=== PATIENT | male | born 1945 | race Caucasian/White ===

== ENCOUNTER 2018-08-02 04:50 | Emergency (ER) | payer MEDICARE, OTHER, SELFPAY ==
[2018-08-02 04:51] VITALS: BP 139/65; PULSE 66; RESP 20; TEMP 36.6; O2SAT 98; BMI 30.3
[2018-08-02] MEDS: predniSONE 20 MG Tablet 40 MG PO (05:07)
--- NOTE | 2018-08-02 05:09 | ED.DCSUM_ITS ---
- ER Visit Summary Date of Service: 08/02/18 Chief Complaint: Allergic reaction History of Present Illness: The patient is a 73 M presents for concerns of allergic reaction to antibiotic. Started on Augmentin Thursday by [facility] for mild diverticulitis per patient. States it was confirmed by CT scan. Being treated with medication 3 times a day status post 7 doses. He states yesterday morning noted a mild rash however has became more diffuse face and torso. States pruritic. No lip or tongue swelling. States had 3-4 days abdominal pain prior to being diagnosed. Pain has improved. No nausea or vomiting. No diarrhea. He has taken amoxicillin in the past. Patient drove himself here. Denies history of diabetes. Physical Examination: General: Alert and oriented ?3, no acute distress HEENT: Normocephalic, atraumatic. Moist mucosa membranes. No lip or tongue swe lling. Airway patent. Neck: supple, nontender. Cardiovascular: Regular rate and rhythm, no murmurs Respiratory: Normal breath sounds, symmetric, no distress Abdomen: Soft, nontender, nondistended Extremities: Nontender, no edema, pulses intact ?4 Neuro: no focal neurological deficits. Skin: Diffuse macular papular rash torso front and back. There is erythema and flushing of the face. Test Results: [] Emergency Department Course and Treatment: History concerns for drug reaction causing a rash. There is no airway compromise. Vital signs are stable. Patient drove himself here. Be started on prednisone, Benadryl 1 tab dispense to take at home. We will stop Augmentin. Patient does have prescription coverage. Discussed due to being diagnosed with diverticulitis by CT scan per history, should treat for at least 10-day recommendations even with symptoms improved. He is 3 days of treatment in. Discussed his options, we will do Avelox daily for 7 days. He will continue with additional 4 days of steroids. Benadryl as needed. Also discussed patient will need to see his new physician referral to GI for follow-up colonoscopy. Treatment Plan: [] Disposition: Discharge Impression: 1. Allergic drug reaction 2. Current treatment for diverticulitis This note was generated with [employer] software. It may contain incorrect words, spelling, and punctuation that were not noted in review of the chart prior to signing ED Disposition - Plan for ED Patient: Disposition: Home or Assisted Living Chief Complaint: Allergic Reaction Diagnosis: Allergic drug reaction, Current diverticulitis treatment Instructions: ED Drug React Allergic Prescriptions: Moxifloxacin HCl [Avelox] 400 mg PO DAILY #7 tablet Prednisone [Deltasone] 40 mg PO DAILY #8 tablet Additional Instructions: Stop Augmentin. Start Avelox for full treatment of your diverticulitis. Prednisone for additional 4 days start tomorrow. Benadryl 25 mg every 6 hours as needed for itching. Follow-up with your new physician for reevaluation as scheduled and referral to GI.
[2018-08-02 05:31] VITALS: BP 111/69; PULSE 64; RESP 16; O2SAT 95
[2018-08-02] MEDS: DiphenhydrAMINE 25 MG Capsule PO (05:31)
== END 2018-08-02 05:32 | disposition home or self-care (01) ==
LOC: ED 05:25
PROVIDERS: Emergency Provider Emergency Medicine; Family Provider Family Medicine; PCP Family Medicine
DX: L27.0 Generalized skin eruption due to drugs and medicaments taken internally (principal); T36.0X5A Adverse effect of penicillins, initial encounter; Y92.9 Unspecified place or not applicable; K57.92 Diverticulitis of intestine, part unspecified, without perforation or abscess without bleeding; H40.9 Unspecified glaucoma
CPT/HCPCS: 99283

== ENCOUNTER 2020-03-21 16:33 | Emergency (ER) | payer MEDICARE, OTHER, SELFPAY ==
[2020-03-21 16:34] VITALS: BP 127/75; PULSE 63; RESP 19; TEMP 36.5; O2SAT 100; BMI 30.4
--- NOTE | 2020-03-21 16:55 | ED.DCSUM_ITS ---
History of Present Illness Chief Complaint: Laceration Informant: Patient Occurred: Hours - 1 Mechanism/Context: Incised - on accident w/ kitchen knife Context: Sudden Onset Timing: Continuous Quality of Pain: - - sore Location: left index finger Current Severity: Mild Maximum Severity: Mild Worsened by: palpation Relieved by: leaving alone Associated Symptoms: Negative for: Parasthesia, Weakness, Loss of Funtion Narrative: Patient was trying to open a package of ham with a kitchen knife and accidentally punctured through it and lacerated his left index finger as a result. Tetanus Immunization: 5-10 years Past Medical History - Allergies and Home Meds Allergies/Adverse Reactions: Allergies amoxicillin [From Augmentin] Allergy (Verified 03/21/20 16:33) Hives clavulanic acid [From Augmentin] Allergy (Verified 03/21/20 16:33) Hives bacitracin [From Neosporin ([id number])] Adverse Reaction (Verified 03/21/20 16:33) Rash neomycin [From Neosporin ([id number])] Adverse Reaction (Verified 03/21/20 16:33) Rash polymyxin B [From Neosporin ([id number])] Adverse Reaction (Verified 03/21/20 16:33) Rash Primary Care Physician: Cayden Hedrick III, MD [Primary Care Provider] - 10-14 Days suture removal Past Medical History: None Smoking Status: Never smoker Review of Systems Musculoskeletal: Reports: Extremity Pain Skin: Reports: Wounds Neurological: Denies: Weakness, Parasthesia, Numbness Physical Exam Vital Signs/Narrative: Vital Signs Temp Pulse Resp BP Pulse Ox 03/21/20 16:34 97.7 F L 63 19 H 127/75 H 100 General: Well nourished, Well developed, - - well-appearing, nad Head: Normocephalic, Atraumatic Extremeties: Mild tenderness at the laceration of the left index finger, which is dorsal only. Full extension and flexion at the DIPJ. Skin: Normal color, No rash, Trauma - 1.5 cm full-thickness laceration to the dorsum of the left index finger at the level of the DIPJ. No tendon or bone visible within the wound. Minimal bleeding. No signs of infection. Clean appearing without gross contamination. No foreign body. Neurological: Alert, Oriented x3, Cranial nerves II-XII grossly intact, Normal Strength, Normal Sensation, Normal Gait Psychological: Normal affect Diagnostic/Tx/Re-eval - Medical Decision Making No bony tenderness, or patient foreign body, no indication for x-ray. Laceration was repaired with 4 nylon sutures. Removal in 10 to 14 days, patient is comfortable with that plan. His tetanus is up-to-date. Procedures - Lacerations left index finger Length: 1.5 cm Depth: Sub Q Shape: Linear Prep: Sterile Conditions, Chlorhexadine Laceration repair: Irrigated, Lidocaine, Local - 1cc Irrigated (ml): 50 Number of Sutures/[place]: 4 Suture Information: Ethilon, Simple, 5-0 ED Disposition - Plan for ED Patient: Disposition: Home or Assisted Living Diagnosis: Laceration of left index finger w/o foreign body w/o damage to nail Instructions: ED Laceration Hand Referrals: Cayden Hedrick III, MD [Primary Care Provider] - 10-14 Days suture removal (Or urgent care or ER acceptable)
[2020-03-21] MEDS: Lidocaine/Epi/Tetracaine 50 ML 1 APPLIC TOPICAL (17:03)
== END 2020-03-21 19:30 | disposition home or self-care (01) ==
LOC: ED 17:24
PROVIDERS: Emergency Provider Emergency Medicine; PCP Family Medicine
DX: S61.211A Laceration without foreign body of left index finger without damage to nail, initial encounter (principal); W26.0XXA Contact with knife, initial encounter; Y93.G3 Activity, cooking and baking; Y92.9 Unspecified place or not applicable; Y99.9 Unspecified external cause status
CPT/HCPCS: 12001; 99283

== ENCOUNTER → 2020-12-20 10:51 | Outpatient (CLI) | payer MEDICARE, OTHER, SELFPAY ==
--- NOTE | 2020-12-20 11:00 | MRI_ITS ---
STUDY: MRI ORBITS WITH AND WITHOUT CONTRAST REASON FOR EXAM: Male, 75 years old. OPTIC ATROPHY OS -- ORBITS TECHNIQUE: Standardized fat and water weighted pulse sequences were obtained in all 3 orthogonal planes, pre-and post contrast administration. IV DOTAREM 19CC was administered for the contrast portion of the examination. COMPARISON: None. FINDINGS: Normal bilateral globes. Atrophic bilateral optic nerves. Normal bilateral intraconal and extraconal spaces. Normal bilateral extraocular muscles. Atrophic optic chiasm and post-chiasmatic tracts. Normal sella turcica, pituitary gland, infundibular stalk, and hypothalamus. Normal bilateral cavernous sinuses. Normal tectal plate and pineal gland. Normal flow voids within the major intracranial circulation suggesting patency by spin echo criteria. Normal size of the ventricles and extra-axial spaces for the patient''s age. Normal white matter tracts of the supratentorial brain. Normal bilateral basal ganglia. Normal thalami. There is no extra-axial fluid accumulation. Normal midbrain, arlet and medulla. Normal cerebellum. Normal basal cisterns. MRI/Orbit Face Neck W/WO Contrast IMPRESSION: There is thickening of the optic chiasm and optic nerves consistent with optic atrophy. There is no abnormality in the optic tracts or in the cerebral white matter right occipital lobes are unremarkable. Electronically Signed: Charleen Augustin MD at 13:42 EDT Tel , Service support ,
[2020-12-20 11:21] LABS: CREATININE FINGERSTICK 1.4 mg/dL (0.70-1.30)
== END ==
PROVIDERS: PCP Family Medicine; Referring Provider Ophthalmology; Visit Provider Ophthalmology
DX: H47.212 Primary optic atrophy, left eye (principal)
CPT/HCPCS: 70543; A9575

== ENCOUNTER → 2022-08-05 | Outpatient (CLI) | payer MEDICARE, OTHER, SELFPAY ==
--- NOTE | 2022-08-05 13:04 | EKG12_ITS ---
Test Reason : PREOP Blood Pressure : / mmHG Vent. Rate : 071 BPM Atrial Rate : 071 BPM P-R Int : 188 ms QRS Dur : 078 ms QT Int : 370 ms P-R-T Axes : 021 013 059 degrees QTc Int : 402 ms Normal sinus rhythm Normal ECG Confirmed by NORMA RICHEY, JOEL ([id number]), science editor PASQUALE BARRAGAN ([id number]) on 08/06/2022 9:07:28 AM Referred By: Houston Dennis Confirmed By:JOEL GREEN MD
--- NOTE | 2022-08-05 13:05 | CT_ITS ---
EXAM: CT RIGHT LOWER EXTREMITY WITHOUT INTRAVENOUS CONTRAST CLINICAL INDICATION: PRE OP TECHNIQUE: Helically acquired images were obtained of the right lower extremity without intravenous contrast. 2-D reformats were performed by the technologist. CTDIvol = ( 18.76 ) mGy, DLP = ( 2803.37 ) mGycm This CT exam was performed using one or more of the following dose reduction techniques: automated exposure control, adjustment of the mA and/or kV according to patient size, and/or use of iterative reconstruction technique. This report was created using [employer] report SpeedDate technology. COMPARISON: None. FINDINGS: Moderate osteoarthrosis involving the hips and knees with [id number] articulation at central aspect of the medial femorotibial compartment and with mild lateral subluxation of the tibia relative to the femur. No definite acute or healing fracture or malalignment. No unusual lytic or splenic lesions of bone. Distal colonic diverticulosis without diverticulitis. Moderate suprapatellar joint fluid is present. Peripheral vascular disease. Extensor mechanism enthesopathy. Calcaneal enthesopathy. CT/Extremity Lower without Contra IMPRESSION: Preoperative planning study performed from the hip to the ankle. Incidental findings as above. Electronically Signed: Dallas Gore MD at 22:45 EST ,
[2022-08-05 14:38] LABS: Absolute Lymphocyte Count 2.16 X10^3/uL (0.83-4.51); Absolute Neutrophil Count 3.5 X10^3/uL (2.0-7.7); Basophil# 0.04 X10^3/uL; Basophil% 0.6 % (0-1); Eosinophil# 0.17 X10^3/uL; Eosinophils% 2.5 % (0-5); Hematocrit 43.9 % (40-54); Hemoglobin 14.7 g/dL (13.0-16.5); Lymphocyte # 2.16 X10^3/ul (0.83-4.51); Lymphocyte % 31.4 % (19-41); Mean Corp Hgb Conc 33.5 g/dL (32-36); Mean Corpuscular Volume 98.4 fL (80-94); Mean Platelet Vol. 9.9 fl (6.2-12.0); Monocyte# 0.95 X10^3/uL; Monocyte% 13.8 % (0-10); NRBC Flagged by Analyzer 0 % (0-5); Neutrophil # 3.54 X10^3/uL (2.7-7.7); Neutrophil % 51.4 % (47-70); Platelet Count 344 K/mm3 (150-450); RBC Distribution Width CV 14.4 % (11.6-14.6); RBC Distribution Width SD 52.5 fl (35.1-43.9); Red Blood Count 4.46 M/mm3 (4.6-6.2); White Blood Count 6.9 K/mm3 (4.4-11.0)
[2022-08-05 14:52] LABS: Albumin, Serum 3.4 g/dL (3.2-5.0); Anion Gap 5 (5-15); BUN 13 mg/dL (7-18); Chloride 105 mmol/L (98-107); Creatinine, Serum 0.87 mg/dL (0.70-1.30); EST Glomerular Filtration Rate 91 mL/min (>60); Est Glom Filt Rate - Afr Amer 110 mL/min (>60); Glucose 87 mg/dL (74-106); Potassium 4.1 mmol/L (3.5-5.1); Sodium Level 139 mmol/L (136-145)
[2022-08-05 14:59] LABS: Hemoglobin A1c 5.6 % (3.8-5.6)
== END | disposition home or self-care (01) ==
PROVIDERS: PCP Nurse Practitioner Primary Care; Referring Provider Physician Assistant Surgical; Visit Provider Physician Assistant Surgical
DX: Z01.818 Encounter for other preprocedural examination (principal); Z01.810 Encounter for preprocedural cardiovascular examination; M17.11 Unilateral primary osteoarthritis, right knee
CPT/HCPCS: 36415; 73700; 80048; 82040; 83036; 85025; 93005

== ENCOUNTER 2022-08-29 14:49 | Inpatient (IN) | payer MEDICARE, OTHER, SELFPAY ==
[2022-08-29 14:51] VITALS: BP 133/113; PULSE 78; RESP 18; TEMP 35.9; O2SAT 95; BMI 29.5
--- NOTE | 2022-08-29 17:19 | CT_ITS ---
EXAM: CT ABDOMEN AND PELVIS WITH INTRAVENOUS CONTRAST CLINICAL INDICATION: abdominal pain TECHNIQUE: Helically acquired images were obtained of the abdomen and pelvis with intravenous contrast. This CT exam was performed using one or more of the following dose reduction techniques: automated exposure control, adjustment of the mA and/or kV according to patient size, and/or use of iterative reconstruction technique. This report was created using [employer] report generation technology. CONTRAST: IV 100mL Isovue-300 COMPARISON: 07/04/2016. FINDINGS: LOWER THORAX: Unremarkable. Lung bases are clear. No cardiomegaly. No significant pericardial effusion. ABDOMEN: LIVER: Small calcifications in the liver consistent with old granulomatous disease. GALLBLADDER AND BILE DUCTS: Unremarkable. No calcified gallstones. No gallbladder distention or wall edema. No intra- or extrahepatic biliary ductal dilation. PANCREAS: No peripancreatic stranding or duct dilation. No focal cystic or solid mass. SPLEEN: Spleen is absent. ADRENALS: Unremarkable. No nodules. KIDNEYS AND URETERS: 10 cm lower pole left renal cyst, increased compared to the prior study. No hydronephrosis. STOMACH AND BOWEL: Thick walled second duodenal segment with mild periduodenal stranding. Diverticulosis. No acute diverticulitis. No stomach or bowel distention. PELVIS: APPENDIX: No evidence of acute appendicitis. BLADDER: Unremarkable. REPRODUCTIVE: Unremarkable as visualized. No mass. ABDOMEN and PELVIS: INTRAPERITONEAL SPACE: Unremarkable. No ascites or other fluid collection. No free air. BONES/JOINTS: Remote healed left pelvic trauma. Mild osteoarthrosis of the left hip. No suspicious lytic or blastic abnormality. SOFT TISSUES: Unremarkable. No discrete abdominal or pelvic wall hernia. VASCULATURE: Unremarkable. Abdominal aorta is normal in caliber. LYMPH NODES: Unremarkable. No enlarged lymph nodes. CT/Abdomen/Pelvis W IV Cont ONLY IMPRESSION: Thick-walled duodenum and mild stranding. Findings are suspicious for duodenitis or peptic ulcer disease. Acute pancreatitis is considered less likely. Left hip osteoarthrosis. Left renal cyst. Electronically Signed: Rena Phipps MD at 18:45 EST Reading Location ID and State: [id number] / Tel , Service support ,
--- NOTE | 2022-08-29 17:22 | ED.VIS.GI ---
HPI HPI - GI History of Present Illness Chief Complaint: Abd Pain Narrative Narrative: 77-year-old male presenting with abdominal pain. He states it is epigastric in nature. It has been present for 2 days. He admits to nausea without vomiting. He states that the only abdominal surgery he has had was a hernia repair. He states he is not having bowel movements for the last 2 days. He states he has been trying to laxative he was given by his surgeon but its not working. He does not recall the name of it. He has not tried anything else. He denies history of bowel obstruction. He has not had a fever. Denies urinary complaints. Patient states that he does not drink alcohol. No history of pancreatitis. PFSH PFS Medical History (Updated 08/29/22 @ 17:45 by Romina Celaya) HLD (hyperlipidemia) Home Medications bimatoprost 0.01 % eye drops (Lumigan) 1 drp QHS 07/04/16 [History Last Taken Unknown] Moxifloxacin Hcl [Avelox] 400 mg PO DAILY ##7 08/02/18 [Rx Last Taken Unknown] prednisone 20 mg tablet (Deltasone) 40 mg PO DAILY ##8 08/02/18 [Rx Last Taken Unknown] Allergy/AdvReac Type Severity Reaction Status Date / Time amoxicillin [From Augmentin] Allergy Hives Verified 08/29/22 14:51 clavulanic acid Allergy Hives Verified 08/29/22 14:51 [From Augmentin] bacitracin AdvReac Rash Verified 08/29/22 14:51 [From Neosporin ([id number])] neomycin AdvReac Rash Verified 08/29/22 14:51 [From Neosporin ([id number])] polymyxin B AdvReac Rash Verified 08/29/22 14:51 [From Neosporin ([id number])] Surgical History (Updated 08/29/22 @ 17:45 by Romina Celaya) H/O hernia repair H/O left knee surgery History of right knee joint replacement Social History Smoking Status: Former smoker ROS ROS ED Constitutional Constitutional ED: Denies chills, fever(s) or sweats Eyes Eyes: Denies blurry vision or change in vision ENT ENT ED: Denies ear pain or sore throat Cardiovascular Cardiovascular: Denies chest pain, palpitations or racing heartbeat Respiratory/Chest Respiratory/Chest: Denies cough, dyspnea or sputum Gastrointestinal Gastrointestinal: Reports abdominal pain, constipation and nausea; Denies diarrhea or vomiting Genitourinary Genitourinary ED: Denies dysuria, hematuria or urinary frequency Musculoskeletal Musculoskeletal: Denies arthralgias, myalgias or neck pain Integumentary Denies abscess, Abrasions or rash Neurologic Neurologic: Denies headache(s), paresthesias or weakness Psychiatric Psychiatric: Denies anxiety, depression, suicidal ideation or suicidal thoughts Endocrine Endocrinology: Denies polydipsia or polyuria EXAM Physical Exam Const Vital Signs: 08/29/22 14:51 08/29/22 17:43 08/29/22 19:00 Temperature 96.6 F L Temperature Source Temporal Pulse Rate 78 70 Respiratory Rate 18 18 18 Blood Pressure 133/113 H 130/77 H Blood Pressure Mean 119 94 Pulse Ox 95 95 Oxygen Delivery Method Room Air Room Air Positive well nourished General Appearance ED: NAD; Negative for pallor HEENT Reports moist mucous membranes normocephalic and atraumatic Eyes PERRL and EOMs intact bilaterally Cardio regular rate and regular rhythm GI Palpation: tender epigastric Back/Spine no CVA tenderness Neuro CN's II-XII intact bilaterally Psych mental status grossly normal Skin no wounds General Skin Exam: Negative for jaundice or pallor MDM MDM MDM Narrative Medical decision making narrative: 77-year-old male presenting with epigastric pain and nausea without vomiting. Patient declines analgesia and antiemetics. He is actually sleeping comfortably when I entered the room. I did lab work and his CBC shows a white cell cell count of 13.0, hemoglobin is acutely down to 8.8 from last month when it was 14.7. His platelets have increased to 705 in the last month. Renal function and electrolytes are normal. BUN/creatinine elevation slightly at 25. His creatinine is actually improved since last month which would suggest a GI bleed. Hemoccult however was negative. Lipase is normal. LFTs are normal. Patient is not anticoagulated. He has normal vital signs. CT of the abdomen pelvis concerning for duodenitis versus peptic ulcer disease. Patient was given Protonix. Patient was discussed with Chioma Jamil who is on-call for Dr. Forbes. She stated that he could see the patient in consult if needed. I did type and screen him but I do not think he needs blood currently. I spoke with the hospitalist for admission. Impression: 1. Occult GI bleed 2. Acute blood loss anemia 3. Epigastric pain 4. Duodenitis Lab Data Attestation: I reviewed the patient's lab results. Labs: Laboratory Results - last 24 hr 08/29/22 08/29/22 17:30 17:30 WBC 13.0 H RBC 2.65 L Hgb 8.8 L Hct 27.9 L MCV 105.3 H MCH 33.2 H MCHC 31.5 L RDW Std Deviation 64.9 H RDW Coeff of Tess 17.5 H Plt Count 705 H MPV 9.7 Immature Gran % (Auto) 0.600 Neut % (Auto) 75.6 H Lymph % (Auto) 13.5 L Callahan % (Auto) 9.2 Eos % (Auto) 0.6 Baso % (Auto) 0.5 Absolute Neuts (auto) 9.8 H Absolute Lymphs (auto) 1.75 Nucleated RBC % 0.8 Sodium 140 Potassium 4.1 Chloride 105 Carbon Dioxide 26.0 Anion Gap 9 BUN 20 H Creatinine 0.80 Estim Creat Clear Calc 78.58 Est GFR (MDRD) Af Amer 120 Est GFR (MDRD) Non-Af 99 BUN/Creatinine Ratio 25.0 H Glucose 117 H Calcium 9.3 Total Bilirubin 0.50 AST 14 L ALT 14 L Alkaline Phosphatase 87 Total Protein 6.9 Albumin 2.9 L Globulin 4.0 Albumin/Globulin Ratio 0.7 L Lipase 133 Radiography Diagnostic Testing: Clinical Impression(s) from Imaging Studies Abdomen/Pelvis CT 08/29/22 17:19 IMPRESSION: Thick-walled duodenum and mild stranding. Findings are suspicious for duodenitis or peptic ulcer disease. Acute pancreatitis is considered less likely. Left hip osteoarthrosis. Left renal cyst. Electronically Signed: Rena Phipps MD at 18:45 EST Reading Location ID and State: [id number] / Tel , Service support , Discharge Plan Triage Chief Complaint: Abd Pain Other Complaint: Nausea/Vomiting ED Provider: Clyde Bunn Dx/Rx/DC Orders Prescriptions: No Action bimatoprost [Lumigan] 1 DROP bottle 1 drp Each Eye QHS Label Comments: prednisone [Deltasone] 20 MG tablet 40 mg PO DAILY Qty: 8 0RF Rx Instructions: With food Moxifloxacin Hcl [Avelox] 400 MG tablet 400 mg PO DAILY Qty: 7 0RF Primary Care Provider: Marissa Rodrigues NP Referrals: Marissa Rodrigues NP, COMPENSATION VICE PRESIDENT-C [Primary Care Provider] -
[2022-08-29 17:42] LABS: Absolute Lymphocyte Count 1.75 X10^3/uL (0.83-4.51); Absolute Neutrophil Count 9.8 X10^3/uL (2.0-7.7); Basophil# 0.06 X10^3/uL; Basophil% 0.5 % (0-1); Eosinophil# 0.08 X10^3/uL; Eosinophils% 0.6 % (0-5); Hematocrit 27.9 % (40-54); Hemoglobin 8.8 g/dL (13.0-16.5); Lymphocyte # 1.75 X10^3/ul (0.83-4.51); Lymphocyte % 13.5 % (19-41); Mean Corp Hgb Conc 31.5 g/dL (32-36); Mean Corpuscular Hgb 33.2 pg (27.0-32.0); Mean Corpuscular Volume 105.3 fL (80-94); Mean Platelet Vol. 9.7 fl (6.2-12.0); Monocyte# 1.19 X10^3/uL; Monocyte% 9.2 % (0-10); NRBC Flagged by Analyzer 0.8 % (0-5); Neutrophil # 9.83 X10^3/uL (2.7-7.7); Neutrophil % 75.6 % (47-70); Platelet Count 705 K/mm3 (150-450); RBC Distribution Width CV 17.5 % (11.6-14.6); RBC Distribution Width SD 64.9 fl (35.1-43.9); Red Blood Count 2.65 M/mm3 (4.6-6.2)
[2022-08-29 17:43] VITALS: BP 130/77; PULSE 70; RESP 18; O2SAT 95
[2022-08-29 18:09] LABS: ALB/GLOB Ratio 0.7 RATIO (0.9-2.4); AST(SGOT) 14 U/L (15-37); Alanine Aminotransfer ALT/SGPT 14 U/L (16-61); Albumin, Serum 2.9 g/dL (3.2-5.0); Alkaline Phosphatase 87 U/L (45-117); Anion Gap 9 (5-15); BUN 20 mg/dL (7-18); Calcium,Total 9.3 mg/dL (8.5-10.1); Chloride 105 mmol/L (98-107); EST Glomerular Filtration Rate 99 mL/min (>60); Est Glom Filt Rate - Afr Amer 120 mL/min (>60); Estimated Creatinine Clearance 78.58 ml/min; Glucose 117 mg/dL (74-106); Lipase 133 U/L (73-393); Potassium 4.1 mmol/L (3.5-5.1); Protein, Total 6.9 g/dL (6.4-8.2); Sodium Level 140 mmol/L (136-145)
[2022-08-29 19:00] VITALS: RESP 18
[2022-08-29 21:00] VITALS: RESP 14
[2022-08-29 21:16] VITALS: BP 110/71; PULSE 79; RESP 14; TEMP 36.8; O2SAT 95
[2022-08-29 22:10] VITALS: BMI 28.0
--- NOTE | 2022-08-29 22:22 | PCM.HP.STD ---
HPI - General General Date of Admission: 08/29/22 Date of Service: 08/29/22 Chief Complaint: Epigastric pain HPI Narrative 77-year-old male who presented to [facility] 08/29/2022 with 3 days of epigastric pain and nausea. In the ED he was found to have had a hemoglobin drop from his baseline of roughly fourteen 1 month ago to 8.[address] showed duodenitis. Does report dark stools, FOBT negative but given the drop in hemoglobin GI consulted and requests he is n.p.o. at midnight. Hospitalist consulted for admission. Evaluated at bedside and he reports that the pain has been gradually worsening over the past 3 days with the worst being 6/10: Has pain right now although slightly better than it was. Has also had dark stool for several days but feels he has been constipated overall. Pain is primarily in the epigastrium without complaints of lower pain. Has had nausea and was close to vomiting yesterday but reports he did not. Denies fever. Denies chest pain or shortness of breath. Denies other complaints today. REPLACED BY [facility] Medical History (Updated 08/29/22 @ 23:[address] Migdalia Bowers MD) HLD (hyperlipidemia) Home Medications bimatoprost 0.01 % eye drops (Lumigan) 1 drp QHS eye 07/04/16 [History Last Taken Unknown] latanoprost 0.005 % eye drops 1 drp EACH EYE DAILY eye drop 08/29/22 [History Last Taken Unknown] rosuvastatin 10 mg tablet 10 mg PO DAILY hld 08/29/22 [History Last Taken Unknown] Allergy/AdvReac Type Severity Reaction Status Date / Time amoxicillin [From Augmentin] Allergy Hives Verified 08/29/22 14:51 clavulanic acid Allergy Hives Verified 08/29/22 14:51 [From Augmentin] bacitracin AdvReac Rash Verified 08/29/22 14:51 [From Neosporin ([id number])] neomycin AdvReac Rash Verified 08/29/22 14:51 [From Neosporin ([id number])] polymyxin B AdvReac Rash Verified 08/29/22 14:51 [From Neosporin ([id number])] Surgical History (Updated 08/29/22 @ 22:25 by Olga M Self) H/O hernia repair H/O left knee surgery H/O right knee surgery History of right knee joint replacement Social History Smoking Status: Former smoker ROS Constitutional Constitutional: Denies change in weight, chills, fever(s) or night sweats Eyes Eyes: Denies change in vision ENT HEENT: Denies headache(s), nasal congestion or sore throat Cardiovascular Cardiovascular: Denies chest pain or palpitations Respiratory/Chest Respiratory/Chest: Denies cough or productive cough Gastrointestinal Gastrointestinal: Reports other Details: Some constipation, dark stools, epigastric tenderness Genitourinary Genitourinary: Reports other Details: denies changes in urination Musculoskeletal Musculoskeletal: Denies joint pain Neurologic Neurologic: Denies dizziness, focal weakness, headache(s), numbness or tingling Psychiatric Psychiatric: Denies anxiety Hematologic/Lymphatic Hematologic/Lymphatic: Denies easy bleeding Allergic/Immunologic Allergic/Immunologic: Reports other Details: denies rashes Vital Signs Vital Signs Vital Signs: 08/29/22 14:51 08/29/22 17:43 08/29/22 19:00 Temperature 96.6 F L Temperature Source Temporal Pulse Rate 78 70 Respiratory Rate 18 18 18 Blood Pressure 133/113 H 130/77 H Blood Pressure Mean 119 94 Pulse Ox 95 95 Oxygen Delivery Method Room Air Room Air 08/29/22 21:16 08/29/22 21:00 Temperature 98.2 F Temperature Source Oral Pulse Rate 79 Respiratory Rate 14 14 Blood Pressure 110/71 Blood Pressure Mean 84 Pulse Ox 95 Oxygen Delivery Method Room Air Weight Weight: 93.44 kg Body Mass Index (BMI) 29.5 Physical Exam Const alert and no apparent distress Constitutional Narrative: Oriented HEENT normocephalic and head/scalp atraumatic Eyes Eyes Narrative: EOM grossly intact, anicteric Neck supple Resp normal respiratory effort and clear to auscultation bilaterally Cardio regular rate and regular rhythm GI GI Narrative: Moderate tenderness to deep palpation in epigastric region without tenderness in other quadrants, no rebound/guarding/rigidity Extremity Extremity Narrative: No edema appreciated Neuro moves all extremities Neuro Narrative: No overt focal deficits appreciated Psych Psych Narrative: Cooperative Results Lab / Micro Data Result Diagrams: 08/29/22 17:30 08/29/22 17:30 Labs: Laboratory Results - last 24 hr 08/29/22 17:30: WBC 13.0 H, RBC 2.65 L, Hgb 8.8 L, Hct 27.9 L, MCV 105.3 H, MCH 33.2 H, MCHC 31.5 L, RDW Std Deviation 64.9 H, RDW Coeff of Tess 17.5 H, Plt Count 705 H, MPV 9.7, Immature Gran % (Auto) 0.600, Neut % (Auto) 75.6 H, Lymph % (Auto) 13.5 L, [place] % (Auto) 9.2, Eos % (Auto) 0.6, Baso % (Auto) 0.5, Absolute Neuts (auto) 9.8 H, Absolute Lymphs (auto) 1.75, Nucleated RBC % 0.8 08/29/22 17:30: Sodium 140, Potassium 4.1, Chloride 105, Carbon Dioxide 26.0, Anion Gap 9, BUN 20 H, Creatinine 0.80, Estim Creat Clear Calc 78.58, Est GFR (MDRD) Af Amer 120, Est GFR (MDRD) Non-Af 99, BUN/Creatinine Ratio 25.0 H, Glucose 117 H, Calcium 9.3, Total Bilirubin 0.50, AST 14 L, ALT 14 L, Alkaline Phosphatase 87, Total Protein 6.9, Albumin 2.9 L, Globulin 4.0, Albumin/Globulin Ratio 0.7 L, Lipase 133 Micro: Microbiology 08/29/22 19:43 Stool Stool Occult Blood (DOUGLAS) - Final Radiology Impression Abdomen/Pelvis CT 08/29/22 17:19 IMPRESSION: Thick-walled duodenum and mild stranding. Findings are suspicious for duodenitis or peptic ulcer disease. Acute pancreatitis is considered less likely. Left hip osteoarthrosis. Left renal cyst. Electronically Signed: Rena Phipps MD at 18:45 EST Reading Location ID and State: [id number] / Tel , Service support , Assessment & Plan Assessment/Plan (1) Acute anemia: PLAN: Plan #Acute macrocytic anemia Hemoglobin was 14.7 on 08/05/2022 which appeared close to baseline but today it is 8.8 We will obtain orthostatic vital signs CT demonstrated duodenitis versus pancreatitis, lipase 133 however Reported dark stool but Hemoccult was negative GI was contacted in the ED and requested n.p.o. at midnight Will place formal consult, n.p.o. at midnight PPI Also obtain iron panel, B12, folate Type and screen, PT/INR, retic count H&H every 4 #Recent left knee replacement Healing well, no erythema or drainage, patient has no complaints #DVT ppx: SCDs given hemoglobin drop Migdalia Bowers MD Charges/Coding Visit Charges Inpatient E&M: 69077 Init Hosp L2
[2022-08-29 22:33] VITALS: BP 93/60; PULSE 77; RESP 18; TEMP 36.7; O2SAT 94
[2022-08-29 22:52] LABS: Ferritin 598 ng/mL (26-388)
--- NOTE | 2022-08-29 23:00 | EX.PCM.CON.G ---
HPI Consult Data Date of Consult: 08/29/22 HPI Narrative Reason for Consultation: GI bleed HPI Narrative: DONY HERNANDEZ, is a 77-year-old male who presented to [facility] 08/29/2022 with 3 days of epigastric pain and nausea.? In the ED he was found to have had a hemoglobin drop from his baseline of roughly fourteen 1 month ago to 8.[address] showed duodenitis.? He reports dark stools. ? He reports that the pain has been gradually worsening over the past 3 days with the worst being 6/10: Has pain right now although slightly better than it was.? Has also had dark stool for several days but feels he has been constipated overall.? His pain is primarily in the epigastrium without complaints of lower pain.? His hemoglobin was normal at 14 and is dropped down to 8.8. [facility] Medical History (Updated 08/29/22 @ 23:[address] Migdalia Bowers MD) HLD (hyperlipidemia) Home Medications bimatoprost 0.01 % eye drops (Lumigan) 1 drp QHS eye 07/04/16 [History Last Taken Unknown] latanoprost 0.005 % eye drops 1 drp EACH EYE DAILY eye drop 08/29/22 [History Last Taken Unknown] rosuvastatin 10 mg tablet 10 mg PO DAILY hld 08/29/22 [History Last Taken Unknown] Allergy/AdvReac Type Severity Reaction Status Date / Time amoxicillin [From Augmentin] Allergy Hives Verified 08/29/22 14:51 clavulanic acid Allergy Hives Verified 08/29/22 14:51 [From Augmentin] bacitracin AdvReac Rash Verified 08/29/22 14:51 [From Neosporin ([id number])] neomycin AdvReac Rash Verified 08/29/22 14:51 [From Neosporin ([id number])] polymyxin B AdvReac Rash Verified 08/29/22 14:51 [From Neosporin ([id number])] Surgical History (Updated 08/29/22 @ 22:25 by Olga Moss) H/O hernia repair H/O left knee surgery H/O right knee surgery History of right knee joint replacement Social History Smoking Status: Former smoker ROS Constitutional Constitutional: Denies change in weight, chills, fever(s) or night sweats Eyes Eyes: Denies change in vision ENT HEENT: Denies headache(s), nasal congestion or sore throat Cardiovascular Cardiovascular: Denies chest pain or palpitations Respiratory/Chest Respiratory/Chest: Denies cough or productive cough Gastrointestinal Gastrointestinal: Reports other Details: Some constipation, dark stools, epigastric tenderness Genitourinary Genitourinary: Reports other Details: denies changes in urination Musculoskeletal Musculoskeletal: Denies joint pain Neurologic Neurologic: Denies dizziness, focal weakness, headache(s), numbness or tingling Psychiatric Psychiatric: Denies anxiety Hematologic/Lymphatic Hematologic/Lymphatic: Denies easy bleeding Allergic/Immunologic Allergic/Immunologic: Reports other Details: denies rashes Physical Exam Const alert, oriented x3 and no apparent distress HEENT head/scalp atraumatic, moist oral mucous membranes and oropharynx normal Head and Scalp: normocephalic Mouth: oral and palatal mucosa normal Eyes PERRL and EOMs intact bilaterally Neck no lymphadenopathy, supple and no JVD Resp normal respiratory effort, no retractions, no use of accessory muscles and clear to auscultation bilaterally Cardio regular rate, regular rhythm, S1 normal heart sound, S2 normal heart sound and no murmurs GI normal to inspection, nondistended, normoactive bowel sounds and soft to palpation GI Narrative: moderate epigastric tenderness, no guarding or rebound tenderness Extremity normal to inspection, full ROM and no clubbing, cyanosis or edema Neuro oriented x3, CN's II-XII intact bilaterally and moves all extremities Sensorium / Orientation: awake and alert Motor Exam: strength 5/5 throughout Psych affect normal Lab / Micro Data Result Diagrams: 08/30/22 11:05 08/30/22 08:03 Labs: Laboratory Results - last 24 hr 08/29/22 17:30: WBC 13.0 H, RBC 2.65 L, Hgb 8.8 L, Hct 27.9 L, MCV 105.3 H, MCH 33.2 H, MCHC 31.5 L, RDW Std Deviation 64.9 H, RDW Coeff of Tess 17.5 H, Plt Count 705 H, MPV 9.7, Immature Gran % (Auto) 0.600, Neut % (Auto) 75.6 H, Lymph % (Auto) 13.5 L, [place] % (Auto) 9.2, Eos % (Auto) 0.6, Baso % (Auto) 0.5, Absolute Neuts (auto) 9.8 H, Absolute Lymphs (auto) 1.75, Nucleated RBC % 0.8 08/29/22 17:30: Sodium 140, Potassium 4.1, Chloride 105, Carbon Dioxide 26.0, Anion Gap 9, BUN 20 H, Creatinine 0.80, Estim Creat Clear Calc 78.58, Est GFR (MDRD) Af Amer 120, Est GFR (MDRD) Non-Af 99, BUN/Creatinine Ratio 25.0 H, Glucose 117 H, Calcium 9.3, Total Bilirubin 0.50, AST 14 L, ALT 14 L, Alkaline Phosphatase 87, Total Protein 6.9, Albumin 2.9 L, Globulin 4.0, Albumin/Globulin Ratio 0.7 L, Lipase 133 08/29/22 17:30: Ferritin 598 H 08/29/22 21:50: Blood Type O POSITIVE, Antibody Screen NEGATIVE 08/29/22 21:50: Iron 52 L, TIBC 296, Folate 8.20 08/29/22 21:50: Crossmatch See Detail 08/29/22 23:36: Hgb 7.6 L, Retic Count 8.15 H, Immature Retic Fraction 41.10 H, Retic Hgb Equivalent 35.1 H 08/30/22 08:03: WBC 7.8, RBC 2.68 L, Hgb 8.7 L, Hct 27.8 L, MCV 103.7 H, MCH 32.5 H, MCHC 31.3 L, RDW Std Deviation 65.5 H, RDW Coeff of Tess 18.3 H, Plt Count 625 H, MPV 9.8, Immature Gran % (Auto) 0.100, Neut % (Auto) 66.4, Lymph % (Auto) 20.4, [place] % (Auto) 11.1 H, Eos % (Auto) 1.5, Baso % (Auto) 0.5, Absolute Neuts (auto) 5.2, Absolute Lymphs (auto) 1.59, Nucleated RBC % 1.0, Differential Comment SCANNED, Anisocytosis 2+, Microcytosis 1+, Macrocytosis 1+ 08/30/22 08:03: PT 14.7, INR 1.2 08/30/22 08:03: Sodium 140, Potassium 3.7, Chloride 109 H, Carbon Dioxide 27.0, Anion Gap 4 L, BUN 14, Creatinine 0.69 L, Estim Creat Clear Calc 62.86, Est GFR (MDRD) Af Amer 143, Est GFR (MDRD) Non-Af 119, BUN/Creatinine Ratio 20.4 H, Glucose 90, Calcium 8.6, Total Bilirubin 0.70, AST 14 L, ALT 11 L, Alkaline Phosphatase 81, Total Protein 6.2 L, Albumin 2.6 L, Globulin 3.6, Albumin/Globulin Ratio 0.7 L 08/30/22 08:03: Hgb Cancelled 08/30/22 11:05: Hgb 8.6 L Micro: Microbiology 08/29/22 19:43 Stool Stool Occult Blood (DOUGLAS) - Final Radiology Impression Abdomen/Pelvis CT 08/29/22 17:19 IMPRESSION: Thick-walled duodenum and mild stranding. Findings are suspicious for duodenitis or peptic ulcer disease. Acute pancreatitis is considered less likely. Left hip osteoarthrosis. Left renal cyst. Electronically Signed: Rena Phipps MD at 18:45 EST Reading Location ID and State: [id number] / Tel , Service support , Assessment & Plan Assessment/Plan (1) Acute anemia: PLAN: The differential diagnosis for abdominal pain and abnormal CT findings with a drop in hemoglobin would be upper GI bleed secondary to peptic ulcer disease in the stomach or duodenum. Also different diagnosis does include angiodysplasia, telangiectasia, data Aden lesion. He should undergo an upper endoscopy to evaluate his upper GI tract. Keep NPO. I am okay with continue PPI drip for now. Charges/Coding Visit Charges Inpatient E&M: 00457 Init Hosp L2
[2022-08-29 23:49] LABS: Iron 52 ug/dL (65-175); Iron Binding Capacity,Total 296 ug/dL (250-450)
[2022-08-29 23:50] LABS: Hemoglobin 7.6 g/dL (13.0-16.5); Platelet Count 623 K/mm3 (150-450); RET-HE 35.1 pg (30-35); Reticulocyte Count 8.15 % (0.5-1.5)
[2022-08-30] VITALS (14 sets, daily range): BP systolic 83–117; BP diastolic 49–62; PULSE 60–98; RESP 16–18; TEMP 36.3–36.7; O2SAT 94–99
--- NOTE | 2022-08-30 | EGD_PTH ---
PATIENT: DONY HERNANDEZ LOC: MS3 U#:[id number] AGE/SX: 77/M ROOM: [facility] [place]29/[address]: Dr. Gisel Mallory DO : 1945 BED: 1 DIS: 09/01/2022 SPEC #: [id number] RECD: 09/01/22 09:52 STATUS: SAL REQ #: [id number] ZACHARY: 08/30/22 00:[address]: Darrell Forbes DEPT: SURGICAL PATHOLOGY RECD BY: Eduard Constantino ENTERED: 09/01/22 10:55 SP TYPE: EGD BIOPSY OTHR DR: DO Dr. Latoya Awad MD Dr. Paige Pierce, MD Jessica Witmer, BRAND ENGINEER-C Tissues: Duodenum, NOS Procedures: Surgery Specimen Level IV Comments: @ Ordering doctor for SUIV edited from to @ by EMIR at 09/01/22 1521 @ Submitting doctor edited from to @ by EMIR at 09/01/22 1521 HEADER OPERATION: EGD, biopsies, balloon dilation (MAC) PRE-OP DIAGNOSIS: GI bleed TISSUE SUBMITTED: Duodenal ulcer biopsy MICROSCOPIC DIAGNOSIS Duodenal ulcer, biopsy: Fragments of duodenal mucosa with ulceration, acute and chronic inflammation and granulation tissue reaction. See comment. GAVIN:karri 09/02/2022 COMMENT Correlation with clinical, endoscopic findings and appropriate follow up are necessary. MICROSCOPIC DESCRIPTION Slides are reviewed. GROSS DESCRIPTION Received in fixative is one container labeled with the patient's name and designated duodenal ulcer biopsy. The specimen consists of multiple irregular fragments of light avina soft tissue that in aggregate measure 0.6 x 0.3 x 0.1 cm. The specimen is totally submitted in one cassette. / GAVIN:karri 09/01/2022 TC:2 CPT: 54136
[2022-08-30] MEDS: 0.9% Saline Lock 10 ML Syringe IV (00:31)
--- NOTE | 2022-08-30 02:15 | NURSING ---
DR MCCLELLAND ON UNIT SEEING PT. ORTHOSTATIC VITALS COMPLETED & MD GIVEN RESULTS. NEW ORDERS OBTAINED FOR PRBC TRANSFUSION.
[2022-08-30] MEDS: 0.9% Normal Saline 1,000 ML 999 ML IV (03:10)
[2022-08-30 08:32] LABS: Absolute Lymphocyte Count 1.59 X10^3/uL (0.83-4.51); Absolute Neutrophil Count 5.2 X10^3/uL (2.0-7.7); Basophil# 0.04 X10^3/uL; Basophil% 0.5 % (0-1); Eosinophil# 0.12 X10^3/uL; Eosinophils% 1.5 % (0-5); Hematocrit 27.8 % (40-54); Hemoglobin 8.7 g/dL (13.0-16.5); Lymphocyte # 1.59 X10^3/ul (0.83-4.51); Lymphocyte % 20.4 % (19-41); Mean Corp Hgb Conc 31.3 g/dL (32-36); Mean Corpuscular Hgb 32.5 pg (27.0-32.0); Mean Corpuscular Volume 103.7 fL (80-94); Mean Platelet Vol. 9.8 fl (6.2-12.0); Monocyte# 0.86 X10^3/uL; Monocyte% 11.1 % (0-10); Neutrophil # 5.16 X10^3/uL (2.7-7.7); Neutrophil % 66.4 % (47-70); POSITIVE MORPHOLOGY YES; Platelet Count 625 K/mm3 (150-450); RBC Distribution Width CV 18.3 % (11.6-14.6); RBC Distribution Width SD 65.5 fl (35.1-43.9); Red Blood Count 2.68 M/mm3 (4.6-6.2); White Blood Count 7.8 K/mm3 (4.4-11.0)
[2022-08-30 08:36] LABS: Differential Indicated SCAN CRITERIA MET
[2022-08-30 08:55] LABS: ALB/GLOB Ratio 0.7 RATIO (0.9-2.4); AST(SGOT) 14 U/L (15-37); Alanine Aminotransfer ALT/SGPT 11 U/L (16-61); Albumin, Serum 2.6 g/dL (3.2-5.0); Alkaline Phosphatase 81 U/L (45-117); Anion Gap 4 (5-15); BUN 14 mg/dL (7-18); BUN/Creat Ratio 20.4 RATIO (10-20); Calcium,Total 8.6 mg/dL (8.5-10.1); Chloride 109 mmol/L (98-107); Creatinine, Serum 0.69 mg/dL (0.70-1.30); EST Glomerular Filtration Rate 119 mL/min (>60); Est Glom Filt Rate - Afr Amer 143 mL/min (>60); Estimated Creatinine Clearance 62.86 ml/min; Globulin 3.6 g/dL (2.2-4.2); Glucose 90 mg/dL (74-106); Potassium 3.7 mmol/L (3.5-5.1); Protein, Total 6.2 g/dL (6.4-8.2); Sodium Level 140 mmol/L (136-145)
[2022-08-30 09:18] LABS: International Normalized Ratio 1.2; Prothrombin Time (Protime)PT. 14.7 SECONDS (11.7-14.9)
[2022-08-30 10:22] LABS: Anisocytosis 2+; Differential Comment SCANNED; Macrocytosis 1+; Microcytosis 1+
[2022-08-30 11:17] LABS: Hemoglobin 8.6 g/dL (13.0-16.5)
--- NOTE | 2022-08-30 12:49 | PN.HOSP_ITS ---
Subjective Subjective Patient seen and examined. He complained of some epigastric pain. He denied any dark stools or coffee ground emesis. REview of systems is otherwise negative. He has remained hemodynamically stable. Objective Data Objective Data Vital Signs: Vital Signs Temp Pulse Resp BP Pulse Ox O2 Del Method 98.0 F 70 18 117/61 97 Room Air 08/30/22 08:17 08/30/22 08:17 08/30/22 08:17 08/30/22 08:17 08/30/22 08:17 08/30/22 10:00 Oxygen Delivery Method Room Air Weight: 195 lb 3 oz Body Mass Index (BMI) 28.0 Intake & Output: Intake and Output for Last 24 Hours 08/28/22 08/29/22 08/30/22 23:59 23:59 23:59 Intake Total 35 / 275 1664 / 1664 Output Total 125 / 125 Balance 35 / 275 1539 / 1539 Lab / Micro Data Result Diagrams: 08/30/22 11:05 08/30/22 08:03 Labs: Laboratory Results - last 24 hr 08/29/22 17:30: WBC 13.0 H, RBC 2.65 L, Hgb 8.8 L, Hct 27.9 L, MCV 105.3 H, MCH 33.2 H, MCHC 31.5 L, RDW Std Deviation 64.9 H, RDW Coeff of Tess 17.5 H, Plt Count 705 H, MPV 9.7, Immature Gran % (Auto) 0.600, Neut % (Auto) 75.6 H, Lymph % (Auto) 13.5 L, [place] % (Auto) 9.2, Eos % (Auto) 0.6, Baso % (Auto) 0.5, Absolute Neuts (auto) 9.8 H, Absolute Lymphs (auto) 1.75, Nucleated RBC % 0.8 08/29/22 17:30: Sodium 140, Potassium 4.1, Chloride 105, Carbon Dioxide 26.0, Anion Gap 9, BUN 20 H, Creatinine 0.80, Estim Creat Clear Calc 78.58, Est GFR (MDRD) Af Amer 120, Est GFR (MDRD) Non-Af 99, BUN/Creatinine Ratio 25.0 H, Glucose 117 H, Calcium 9.3, Total Bilirubin 0.50, AST 14 L, ALT 14 L, Alkaline Phosphatase 87, Total Protein 6.9, Albumin 2.9 L, Globulin 4.0, Albumin/Globulin Ratio 0.7 L, Lipase 133 08/29/22 17:30: Ferritin 598 H 08/29/22 21:50: Blood Type O POSITIVE, Antibody Screen NEGATIVE 08/29/22 21:50: Iron 52 L, TIBC 296, Folate 8.20 08/29/22 21:50: Crossmatch See Detail 08/29/22 23:36: Hgb 7.6 L, Retic Count 8.15 H, Immature Retic Fraction 41.10 H, Retic Hgb Equivalent 35.1 H 08/30/22 08:03: WBC 7.8, RBC 2.68 L, Hgb 8.7 L, Hct 27.8 L, MCV 103.7 H, MCH 32.5 H, MCHC 31.3 L, RDW Std Deviation 65.5 H, RDW Coeff of Tess 18.3 H, Plt Count 625 H, MPV 9.8, Immature Gran % (Auto) 0.100, Neut % (Auto) 66.4, Lymph % (Auto) 20.4, [place] % (Auto) 11.1 H, Eos % (Auto) 1.5, Baso % (Auto) 0.5, Absolute Neuts (auto) 5.2, Absolute Lymphs (auto) 1.59, Nucleated RBC % 1.0, Differential Comment SCANNED, Anisocytosis 2+, Microcytosis 1+, Macrocytosis 1+ 08/30/22 08:03: PT 14.7, INR 1.2 08/30/22 08:03: Sodium 140, Potassium 3.7, Chloride 109 H, Carbon Dioxide 27.0, Anion Gap 4 L, BUN 14, Creatinine 0.69 L, Estim Creat Clear Calc 62.86, Est GFR (MDRD) Af Amer 143, Est GFR (MDRD) Non-Af 119, BUN/Creatinine Ratio 20.4 H, Glucose 90, Calcium 8.6, Total Bilirubin 0.70, AST 14 L, ALT 11 L, Alkaline Phosphatase 81, Total Protein 6.2 L, Albumin 2.6 L, Globulin 3.6, Albumin/Globulin Ratio 0.7 L 08/30/22 08:03: Hgb Cancelled 08/30/22 11:05: Hgb 8.6 L Micro: Microbiology 08/29/22 19:43 Stool Stool Occult Blood (DOUGLAS) - Final Radiography Diagnostic Testing: Radiology Impression Abdomen/Pelvis CT 08/29/22 17:19 IMPRESSION: Thick-walled duodenum and mild stranding. Findings are suspicious for duodenitis or peptic ulcer disease. Acute pancreatitis is considered less likely. Left hip osteoarthrosis. Left renal cyst. Electronically Signed: Rena Phipps MD at 18:45 EST Reading Location ID and State: [id number] / Tel , Service support , Physical Exam Const alert, oriented x3 and no apparent distress HEENT head/scalp atraumatic, moist oral mucous membranes and oropharynx normal Head and Scalp: normocephalic Mouth: oral and palatal mucosa normal Eyes PERRL and EOMs intact bilaterally Neck no lymphadenopathy, supple and no JVD Resp normal respiratory effort, no retractions, no use of accessory muscles and clear to auscultation bilaterally Cardio regular rate, regular rhythm, S1 normal heart sound, S2 normal heart sound and no murmurs GI normal to inspection, nondistended, normoactive bowel sounds and soft to pal pation GI Narrative: moderate epigastric tenderness, no guarding or rebound tenderness Extremity normal to inspection, full ROM and no clubbing, cyanosis or edema Neuro oriented x3, CN's II-XII intact bilaterally and moves all extremities Sensorium / Orientation: awake and alert Motor Exam: strength 5/5 throughout Psych affect normal Assessment & Plan Assessment/Plan (1) Acute anemia: PLAN: Plan #Acute anemia due to duodenitis * baseline Hb is 14.7 * hb trended down to 8.8 and he had dark stools and epigastric pain * Hb is now down to 7.6 * on IV PPI drip * gastroenterology consulted * currently NPO * continue hydration with iVF * iron panel showed iron of 52, and ferritin of 598 with TIBC of 296. * anemia likely due to anemia of chronic disease * CT abdomen and pelvis showed thick walled duodenum and mild stranding, with findings suspicious for duodenitis or peptic ulcer disease, with acute pancreatitis less likely * #Hyperlipidemia: on statin #Thrombocytosis: platelets are up to 625; may be due to anemia. Will trend and monitor DVT prophylaxis: SCDs Charges/Coding Visit Charges Inpatient E&M: 93604 Subs Hosp L2
--- NOTE | 2022-08-30 13:43 | NURSING ---
Pt off floor for EGD
[2022-08-30] MEDS: Lactated Ringers 1,000 ML 15 ML IV (14:00)
--- NOTE | 2022-08-30 14:30 | CASEMGMT ---
Addendum entered and electronically signed by Reta Barros RN 08/30/22 19:56: Correction: Assessment completed at 1600. Rolf Barros RN CM Original Note: ZOHAIB CALI Planning Assessment: Face to Face with patient for initial transition planning/care coordination assessment. ZOHAIB AGUILAR introduced self and role at [facility], voices understanding. Care providers, pharmacy, and demographics verified. PCP: Marissa Rodrigues NP Specialists: None Preferred Pharmacy:[facility] Insurance: [facility] A/B, [facility] Prescription Benefit: Yes LNOK: Daughter Nenita Living Arrangements: Pt lives alone in a single story home with no steps to enter. ADLs: Pt has been independent with ADLs. Family does assist as needed with social worker psychiatric. Transportation: Pt had been driving until his recent Lt TKA. His friend or brother transports him to appointments currently. DME: Cane, walker, high rise toilet. SNF: denies HHC: Currently active with [facility] for PT. Plans to start outpt tx on 09/16/22. Order for JOEL for [facility] PT obtained. Plan: Pt plans to return home with resumption of home PT services from [facility]. Pt denies any further concerns or needs at this time. Rolf Barros RN CM
--- NOTE | 2022-08-30 14:33 | OP.EGD_ITS ---
Patient Name: Alex Carrasco Procedure Date: 08/30/2022 1:46 PM Date of : 1945 Age: 77 Procedure: Upper GI endoscopy Indications: Coffee-ground emesis Providers: Darrell Forbes DO Medicines: Monitored Anesthesia Care Patient Profile: This is a 77 year old male. Refer to note in patient chart for documentation of history and physical. Complications: No immediate complications. Procedure: Pre-Anesthesia Assessment: - Prior to the procedure, a History and Physical was performed, and patient medications and allergies were reviewed. The patient is competent. The risks and benefits of the procedure and the sedation options and risks were discussed with the patient. All questions were answered and informed consent was obtained. Patient identification and proposed procedure were verified by the physician in the pre-procedure area. Mental Status Examination: alert and oriented. Airway Examination: normal oropharyngeal airway and neck mobility. CV Examination: normal. Prophylactic Antibiotics: The patient does not require prophylactic antibiotics. Prior Anticoagulants: The patient has taken no previous anticoagulant or antiplatelet agents. ASA Grade Assessment: II - A patient with mild systemic disease. After reviewing the risks and benefits, the patient was deemed in satisfactory condition to undergo the procedure. The anesthesia plan was to use monitored anesthesia care (MAC). Immediately prior to administration of medications, the patient was re-assessed for adequacy to receive sedatives. The heart rate, respiratory rate, oxygen saturations, blood pressure, adequacy of pulmonary ventilation, and response to care were monitored throughout the procedure. The physical status of the patient was re-assessed after the procedure. After obtaining informed consent, the endoscope was passed under direct vision. Throughout the procedure, the patient's blood pressure, pulse, and oxygen saturations were monitored continuously. The gastroscope was introduced through the mouth, and advanced to the second part of duodenum. The upper GI endoscopy was accomplished without difficulty. The patient tolerated the procedure well. Scope In: 2:11:37 PM Scope Out: 2:22:27 PM Total Procedure Duration Time 0 hours 10 minutes 50 seconds Findings: The examined esophagus was normal. A small hiatal hernia was present. No other significant abnormalities were identified in a careful examination of the stomach. Three oozing cratered duodenal ulcers with a visible vessel were found in the duodenal bulb. The largest lesion was 10 mm in largest dimension. Area was successfully injected with 5 mL of a 1:10,000 solution of epinephrine for hemostasis. Three non-bleeding cratered duodenal ulcers with no stigmata of bleeding were found in the first portion of the duodenum. The largest lesion was 6 mm in largest dimension. Biopsies were taken with a cold forceps for histology. Verification of patient identification for the specimen was done. Estimated blood loss was minimal. An acquired benign-appearing, intrinsic severe stenosis was found in the duodenal bulb and was traversed after dilation. A TTS dilator was passed through the scope. Dilation with an 18 mm pyloric balloon dilator was performed. The dilation site was examined following endoscope reinsertion and showed moderate improvement in luminal narrowing. Estimated blood loss was minimal. Impression: - Normal esophagus. - Small hiatal hernia. - Multiple oozing duodenal ulcers with a visible vessel. Injected. - Multiple non-bleeding duodenal ulcers with no stigmata of bleeding. Biopsied. - Acquired duodenal stenosis. Dilated. Recommendation: - [facility]. - Full liquid diet today. - Continue present medications. - Await pathology results. - Repeat upper endoscopy in 3 months for surveillance based on pathology results. - Use sucralfate tablets 1 gram PO QID for 4 weeks. Procedure Code(s): --- Professional --- 53608, 59, Esophagogastroduodenoscopy, flexible, transoral; with control of bleeding, any method 25183, Esophagogastroduodenoscopy, flexible, transoral; with dilation of gastric/duodenal stricture(s) (eg, balloon, bougie) 63575, 59,51, Esophagogastroduodenoscopy, flexible, transoral; with biopsy, single or multiple CPT copyright 2017 [employer]. All rights reserved. The codes documented in this report are preliminary and upon tree pruner review may be revised to meet current compliance requirements. Darrell Forbes DO 08/30/2022 2:32:19 PM This report has been signed electronically. Number of Addenda: 0 Note Initiated On: 08/30/2022 1:46 PM
--- NOTE | 2022-08-30 14:33 | OP.CCLET_ITS ---
08/30/2022 Marissa Rodrigues Re : Upper GI endoscopy procedure for Aelx Carrasco Dear Ravi This procedure was performed on Tuesday, August 30, 2022. My impressions and recommendations are as follows: Impressions : - Normal esophagus. - Small hiatal hernia. - Multiple oozing duodenal ulcers with a visible vessel. Injected. - Multiple non-bleeding duodenal ulcers with no stigmata of bleeding. Biopsied. - Acquired duodenal stenosis. Dilated. Recommendations : - [facility]. - Full liquid diet today. - Continue present medications. - Await pathology results. - Repeat upper endoscopy in 3 months for surveillance based on pathology results. - Use sucralfate tablets 1 gram PO QID for 4 weeks. My findings are described in the full procedure note, which is enclosed. If I can be of further assistance, please feel free to contact me at . Sincerely, Darrell Friend, 08/30/2022 2:32:19 PM This report has been signed electronically.
[2022-08-30] MEDS: Sucralfate 1 GM Tablet PO (17:16)
[2022-08-31 03:56] VITALS: BP 108/56; PULSE 86; RESP 18; TEMP 36.6; O2SAT 98
[2022-08-31 06:30] LABS: Absolute Lymphocyte Count 1.66 X10^3/uL (0.83-4.51); Absolute Neutrophil Count 4.5 X10^3/uL (2.0-7.7); Basophil# 0.05 X10^3/uL; Basophil% 0.7 % (0-1); Eosinophil# 0.33 X10^3/uL; Eosinophils% 4.4 % (0-5); Hematocrit 27.3 % (40-54); Hemoglobin 8.8 g/dL (13.0-16.5); Lymphocyte # 1.66 X10^3/ul (0.83-4.51); Mean Corp Hgb Conc 32.2 g/dL (32-36); Mean Corpuscular Hgb 33.3 pg (27.0-32.0); Mean Corpuscular Volume 103.4 fL (80-94); Mean Platelet Vol. 9.9 fl (6.2-12.0); Monocyte# 0.92 X10^3/uL; Monocyte% 12.2 % (0-10); NRBC Flagged by Analyzer 1.1 % (0-5); Neutrophil # 4.54 X10^3/uL (2.7-7.7); Neutrophil % 60.3 % (47-70); POSITIVE MORPHOLOGY YES; Platelet Count 613 K/mm3 (150-450); RBC Distribution Width CV 18.6 % (11.6-14.6); RBC Distribution Width SD 68.1 fl (35.1-43.9); Red Blood Count 2.64 M/mm3 (4.6-6.2); White Blood Count 7.5 K/mm3 (4.4-11.0)
[2022-08-31] MEDS: Sucralfate 1 GM Tablet PO ×3 (06:34→16:59)
[2022-08-31 06:36] LABS: Differential Indicated SCAN CRITERIA MET
[2022-08-31 06:50] LABS: Anion Gap 5 (5-15); BUN 12 mg/dL (7-18); BUN/Creat Ratio 15.8 RATIO (10-20); Calcium,Total 8.8 mg/dL (8.5-10.1); Chloride 106 mmol/L (98-107); Creatinine, Serum 0.76 mg/dL (0.70-1.30); EST Glomerular Filtration Rate 106 mL/min (>60); Est Glom Filt Rate - Afr Amer 128 mL/min (>60); Estimated Creatinine Clearance 62.86 ml/min; Glucose 106 mg/dL (74-106); Sodium Level 140 mmol/L (136-145)
[2022-08-31 08:00] VITALS: BP 115/62; PULSE 67; RESP 16; TEMP 36.5; O2SAT 96
[2022-08-31 10:03] LABS: Anisocytosis 2+; Differential Comment SCANNED; Hypochromasia 1+; Microcytosis 1+
[2022-08-31 14:30] VITALS: BP 109/64; PULSE 85; RESP 16; TEMP 36.7; O2SAT 99
--- NOTE | 2022-08-31 16:26 | PN.HOSP_ITS ---
Subjective Subjective Patient seen and examined. He had no active complaints. Abdominal pain had resolved. Review of systems is otherwise negative. He had EGD which showed multiple bleeding ulcers and multiple nonbleeding ulcers. Hb is 8.8 today. Objective Data Objective Data Vital Signs: Vital Signs Temp Pulse Resp BP Pulse Ox O2 Del Method 98.0 F 85 16 109/64 99 Room Air 08/31/22 14:30 08/31/22 14:30 08/31/22 14:30 08/31/22 14:30 08/31/22 14:30 08/31/22 15:51 Oxygen Delivery Method Room Air Weight: 195 lb 3 oz Body Mass Index (BMI) 28.0 Intake & Output: Intake and Output for Last 24 Hours 08/29/22 08/30/22 08/31/22 23:59 23:59 23:59 Intake Total 35 / 275 2425.34 / 2425.34 578.17 / 578.17 Output Total 525 / 525 800 / 800 Balance 35 / 275 1900.34 / 1900.34 -221.83 / -221.83 Lab / Micro Data Result Diagrams: 08/31/22 05:35 08/31/22 05:35 Labs: Laboratory Results - last 24 hr 08/31/22 05:35: WBC 7.5, RBC 2.64 L, Hgb 8.8 L, Hct 27.3 L, MCV 103.4 H, MCH 33.3 H, MCHC 32.2, RDW Std Deviation 68.1 H, RDW Coeff of Tess 18.6 H, Plt Count 613 H, MPV 9.9, Immature Gran % (Auto) 0.400, Neut % (Auto) 60.3, Lymph % (Auto) 22.0, [place] % (Auto) 12.2 H, Eos % (Auto) 4.4, Baso % (Auto) 0.7, Absolute Neuts (auto) 4.5, Absolute Lymphs (auto) 1.66, Nucleated RBC % 1.1, Differential Comment SCANNED, Hypochromasia 1+, Anisocytosis 2+, Microcytosis 1+ 08/31/22 05:35: Sodium 140, Potassium 4.0, Chloride 106, Carbon Dioxide 29.0, Anion Gap 5, BUN 12, Creatinine 0.76, Estim Creat Clear Calc 62.86, Est GFR (M DRD) Af Amer 128, Est GFR (MDRD) Non-Af 106, BUN/Creatinine Ratio 15.8, Glucose 106, Calcium 8.8 Micro: Microbiology 08/29/22 19:43 Stool Stool Occult Blood (DOUGLAS) - Final Physical Exam Const alert, oriented x3 and no apparent distress Constitutional Narrative: Oriented HEENT normocephalic, head/scalp atraumatic, moist oral mucous membranes and oropharynx normal Head and Scalp: normocephalic Mouth: oral and palatal mucosa normal Eyes PERRL and EOMs intact bilaterally Eyes Narrative: EOM grossly intact, anicteric Neck no lymphadenopathy, supple and no JVD Resp normal respiratory effort, no retractions, no use of accessory muscles and clear to auscultation bilaterally Cardio regular rate, regular rhythm, S1 normal heart sound, S2 normal heart sound and no murmurs GI normal to inspection, nondistended, normoactive bowel sounds and soft to palpation Extremity normal to inspection, full ROM and no clubbing, cyanosis or edema Neuro oriented x3, CN's II-XII intact bilaterally and moves all extremities Sensorium / Orientation: awake and alert Motor Exam: strength 5/5 throughout Psych affect normal Psych Narrative: Cooperative Assessment & Plan Assessment/Plan (1) Acute anemia: PLAN: Plan #Acute anemia due to multiple bleeding ulcers * Baseline hemoglobin is 14.7 hemoglobin today is 8.8. Hemoglobin went as low as 7.6 and she was transfused a unit of blood. * She had EGD yesterday which showed multiple oozing duodenal ulcers with a visible vessel which were injected and multiple nonbleeding duodenal ulcers with no stigmata of bleeding and these were biopsied. * Was on PPI drip. Switch to p.o. pantoprazole 40 mg twice daily today. Also on sucralfate. * CT abdomen and pelvis showed thick walled duodenum and mild stranding, with findings suspicious for duodenitis or peptic ulcer disease, with acute pancreatitis less likely * #Hyperlipidemia: on statin #Thrombocytosis: platelets are up to 613; may be reactive, due to anemia. Will trend and monitor DVT prophylaxis: SCDs Disposition: * For likely discharge tomorrow. * Wanted to watch after PPI drip was discontinued to make sure bleeding does not recur. * If hemoglobin remained stable, can discharge home tomorrow. Charges/Coding Visit Charges Inpatient E&M: 33654 Subs Hosp L2
[2022-08-31 20:11] VITALS: BP 115/61; PULSE 80; RESP 16; TEMP 36.8; O2SAT 100
[2022-08-31] MEDS: Pantoprazole Sodium 40 MG Tablet PO (20:21)
[2022-09-01 02:40] VITALS: BP 130/76; PULSE 85; RESP 16; TEMP 36.6; O2SAT 98
[2022-09-01] MEDS: Sucralfate 1 GM Tablet PO ×2 (06:16→12:04)
[2022-09-01 06:43] LABS: Absolute Lymphocyte Count 1.54 X10^3/uL (0.83-4.51); Absolute Neutrophil Count 5.1 X10^3/uL (2.0-7.7); Basophil# 0.04 X10^3/uL; Basophil% 0.5 % (0-1); Eosinophil# 0.34 X10^3/uL; Eosinophils% 4.3 % (0-5); Hematocrit 29.6 % (40-54); Hemoglobin 9.4 g/dL (13.0-16.5); Lymphocyte # 1.54 X10^3/ul (0.83-4.51); Lymphocyte % 19.6 % (19-41); Mean Corp Hgb Conc 31.8 g/dL (32-36); Mean Corpuscular Hgb 32.9 pg (27.0-32.0); Mean Corpuscular Volume 103.5 fL (80-94); Mean Platelet Vol. 9.7 fl (6.2-12.0); Monocyte# 0.79 X10^3/uL; Monocyte% 10.1 % (0-10); NRBC Flagged by Analyzer 0.9 % (0-5); Neutrophil # 5.12 X10^3/uL (2.7-7.7); Neutrophil % 65.1 % (47-70); POSITIVE MORPHOLOGY YES; Platelet Count 691 K/mm3 (150-450); RBC Distribution Width CV 18.2 % (11.6-14.6); RBC Distribution Width SD 67.7 fl (35.1-43.9); Red Blood Count 2.86 M/mm3 (4.6-6.2); White Blood Count 7.9 K/mm3 (4.4-11.0)
[2022-09-01 06:57] LABS: Anion Gap 4 (5-15); BUN 11 mg/dL (7-18); BUN/Creat Ratio 12.5 RATIO (10-20); Calcium,Total 8.7 mg/dL (8.5-10.1); Chloride 107 mmol/L (98-107); Creatinine, Serum 0.88 mg/dL (0.70-1.30); EST Glomerular Filtration Rate 89 mL/min (>60); Est Glom Filt Rate - Afr Amer 108 mL/min (>60); Estimated Creatinine Clearance 71.43 ml/min; Glucose 96 mg/dL (74-106); Potassium 4.1 mmol/L (3.5-5.1); Sodium Level 139 mmol/L (136-145)
[2022-09-01 07:21] LABS: Differential Indicated SCAN CRITERIA MET
[2022-09-01 08:11] LABS: Vitamin B12 159 pg/mL (211-911)
[2022-09-01 08:31] LABS: Anisocytosis 1+
[2022-09-01 09:07] VITALS: BP 114/52; PULSE 92; RESP 16; TEMP 36.7; O2SAT 96
[2022-09-01] MEDS: Pantoprazole Sodium 40 MG Tablet PO (09:18)
--- NOTE | 2022-09-01 13:53 | DS.PCM_ITS ---
Providers Date of Admission: 08/29/22 Date of Discharge: 09/01/22 Primary Care Physician: FILOMENA Grover Consultations 08/29/22 23:13 Consult: Gastroenterology Routine Consulting Provider: [facility] Reason for Consult: Hgb drop EMERGENT Consult: No MD Notified: Yes Date Notified: 08/29/22 Time Notified: 22:19 Method of Notification: ED Physician Initiated Reason For Visit: ANEMIA Diagnosis Discharge Diagnosis (1) Acute anemia: Status: Acute Code(s): D64.9 - Anemia, unspecified Medications at Discharge Home Medications bimatoprost 0.01 % eye drops (Lumigan) 1 drp QHS eye 07/04/16 latanoprost 0.005 % eye drops 1 drp EACH EYE DAILY eye drop 08/29/22 rosuvastatin 10 mg tablet 10 mg PO DAILY hld 08/29/22 pantoprazole 40 mg tablet,delayed release 40 mg PO BID #60 tabs 09/01/22 sucralfate 1 gram tablet (Carafate) 1 g PO BID #120 tabs 09/01/22 Hospital Course Procedures EGD Summary of Care Provided Minutes Spent on Discharge: 36 Hospital Course: Mr. Carrasco is a 77-year-old white male presents emergency department was coming hospital on 08/29/2022 complaining of epigastric pain. Patient reports that he had been experiencing epigastric pain for 3 days prior with some associated nausea. In the emergency department he was found to have his hemoglobin dropped from his baseline of 14 which was last drawn approximately 1 month ago. Hemoglobin on the day of presentation was 8.8. CT of the abdomen pelvis showed duodenitis and the patient did report dark stool. Fecal occult blood was done in the emergency department but was negative at that time. The emergency department physician called GI and they requested admission with further work-up. He complained of ongoing nausea with vomiting the day prior to presentation but none on the day of admission. Vital signs at the time of presentation emergency department demonstrated a temperature of 96.6, heart rate 78, respiratory rate of 18, blood pressure is 133/113 with a repeat of 130/77 and oxygen saturations were 95% on room air. His chemistry panel was unremarkable. He had recent knee surgery for which he was taking aspirin but had discontinued this when he started having the epigastric pain and vomiting. It sounds as if this was being utilized as DVT prophylaxis postoperatively. Gastroenterology was consulted and he was taken for an EGD which was performed on 08/30/2022 at which time he was found to have a normal esophagus, small hiatal hernia, multiple oozing duodenal ulcers with a visible vessel that was injected, and multiple nonbleeding duodenal wrestlers with no stigmata of recent bleeding. Biopsies were taken at that time and pending at the time of discharge. Given these findings he was placed on a full liquid diet which she tolerated well. He was maintained on Protonix which was to continue for 8 weeks 40 mg p.o. twice daily as well as the addition of Carafate 1 g 4 times daily for 4 weeks. His hemoglobin remained stable and at the time of discharge was 9.4. The patient was tolerating p.o. diet without difficulty and was discharged home in stable condition on 09/01/2022. He is to follow-up with Dr. Forbes within the next 2 weeks and it was recommended he follow-up with his primary care physician within the next week. He was instructed to avoid NSAIDs and the patient voiced understanding. Discharge diagnoses: Acute blood loss anemia secondary to GI bleed Upper GI bleed secondary to duodenal ulcers Hyperlipidemia Recent knee surgery Physical Exam Const alert, oriented x3, no apparent distress and well nourished Constitutional Narrative: Older white male sitting up in a chair at the bedside, in street close, states he is ready to go home, appears comfortable nontoxic General Appearance: cooperative, comfortable, well kempt and well developed Orientation / Consciousness: awake, oriented to person, oriented to place and oriented to time Exam Limitations: no limitations Nutritional Appearance: overweight HEENT normocephalic, head/scalp atraumatic and moist oral mucous membranes; Negative for hearing grossly normal bilaterally HEENT Narrative: Dentition inMild hearing loss, is poor with upper dentures in place, Mallampati 2, no thrush Eyes PERRL and EOMs intact bilaterally; Negative for conjunctivae normal Eyes Narrative: Conjunctiva are mildly pale bilaterally, no scleral icterus Neck no lymphadenopathy and supple Neck Narrative: Trachea midline, no thyroid enlargement Resp normal respiratory effort, no retractions, no use of accessory muscles and clear to auscultation bilaterally Auscultation: Negative for crackles, rhonchi or wheezes Cardio regular rate, regular rhythm, S1 normal heart sound, S2 normal heart sound, no murmurs, no rub, no gallops and no clicks GI normal to inspection, nondistended, normoactive bowel sounds, soft to palpation, non-tender and non-distended Extremity no clubbing, cyanosis or edema Extremity Narrative: 2+ pedal pulses Skin no rashes or lesions noted, no wounds, skin turgor normal and no jaundice Neuro oriented x3, CN's II-XII intact bilaterally, moves all extremities and no focal motor deficits Sensorium / Orientation: awake, alert, oriented to person, oriented to place and oriented to time Speech: speech normal Psych affect normal Psych Narrative: Very pleasant and appropriately interactive Weight / BMI Weight Weight: 88.536 kg Body Mass Index (BMI) 28.0 ABG / Lab / Microbiology Data Result Diagrams: 09/01/22 06:28 09/01/22 06:28 Laboratory: Laboratory Results - last 24 hr 08/29/22 23:36: Vitamin B12 159 L 09/01/22 06:28: WBC 7.9, RBC 2.86 L, Hgb 9.4 L, Hct 29.6 L, MCV 103.5 H, MCH 32.9 H, MCHC 31.8 L, RDW Std Deviation 67.7 H, RDW Coeff of Tess 18.2 H, Plt Count 691 H, MPV 9.7, Immature Gran % (Auto) 0.400, Neut % (Auto) 65.1, Lymph % (Auto) 19.6, [place] % (Auto) 10.1 H, Eos % (Auto) 4.3, Baso % (Auto) 0.5, Absolute Neuts (auto) 5.1, Absolute Lymphs (auto) 1.54, Nucleated RBC % 0.9, Anisocytosis 1+ 09/01/22 06:28: Sodium 139, Potassium 4.1, Chloride 107, Carbon Dioxide 28.0, Anion Gap 4 L, BUN 11, Creatinine 0.88, Estim Creat Clear Calc 71.43, Est GFR (MDRD) Af Amer 108, Est GFR (MDRD) Non-Af 89, BUN/Creatinine Ratio 12.5, Glucose 96, Calcium 8.7 Microbiology: Microbiology 08/29/22 19:43 Stool Stool Occult Blood (DOUGLAS) - Final D/C Instructions Discharge Diet: Low fat / Low cholesterol Discharge Activity: Return to Normal Activity Meaningful Use Info Meaningful Use Diagnoses (Choose all that apply): None applicable Discharge Plan Admission Admit Date/Time: 08/29/22 21:54 Primary Reason for Your Visit: Epigastric pain Attending Provider: Gisel Mallory Primary Care Provider: Marissa Rodrigues NP Consulting Providers: Migdalia Bowers ; Latoya Zhang Discharge Orders/Prescriptions Prescriptions: New pantoprazole 40 mg Tablet,Delayed Release (Dr/Ec) 40 mg PO BID Qty: 60 0RF sucralfate [Carafate] 1 gram tablet 1 g PO BID Qty: 120 0RF Continued Lumigan 1 DROP bottle 1 drp Each Eye QHS Label Comments: latanoprost 0.005 % drops 1 drp EACH EYE DAILY rosuvastatin 10 mg tablet 10 mg PO DAILY Referrals / Follow Up: Marissa Rodrigues NP, INVOICE CONTROL CLERK-C [Primary Care Provider] - Within 2 Weeks Darrell Forbes DO [Med Staff - Active Staff] - Within 2 Weeks (Call tomorrow to make an appointment to be seen within the next 2 weeks) Disposition Disposition (needs filled in before D/C Order can be placed): Home Health Service Charges/Coding Visit Charges Inpatient E&M: 78563 Disch Hosp
[2022-09-01 14:33] VITALS: BP 133/74; PULSE 84; RESP 16; TEMP 36.8; O2SAT 100
--- NOTE | 2022-09-01 14:50 | CASEMGMT ---
ZOHAIB AGUILAR NOTE: Pt being discharged. Call placed to [facility] and spoke w/Cele. Per Cele, pt was discharged from [facility] on Thursday. ZOHAIB AGUILAR to room. Pt states he was aware of that and states he does not want any further HHC, as he plans to start [facility] for OP therapy soon. He denies having any discharged needs or concerns. Dr Mallory updated pt not discharging w/HHC. JOEL for HHC order cancelled and discharge plan updated. Malissa REYNOLDS RN CM
== END 2022-09-01 14:59 | disposition home or self-care (01) | DRG 378 ==
LOC: ED 21:25 → MS3 21:57
PROVIDERS: Internal Medicine Gastroenterology; Student in an Organized Health Care Education/Training Program; Admitting Provider Internal Medicine; Emergency Provider Student in an Organized Health Care Education/Training Program; PCP Nurse Practitioner Primary Care; Visit Provider Internal Medicine
PROC: 0DJ08ZZ Inspection of Upper Intestinal Tract, Via Natural or Artificial Opening Endoscopic (ICD-10-PCS; CPT 43235; principal; 2022-08-30 13:15)
DX: K26.4 Chronic or unspecified duodenal ulcer with hemorrhage (principal); D62 Acute posthemorrhagic anemia; K31.5 Obstruction of duodenum; E78.5 Hyperlipidemia, unspecified; K44.9 Diaphragmatic hernia without obstruction or gangrene; K29.81 Duodenitis with bleeding; D75.839 Thrombocytosis, unspecified; Z79.52 Long term (current) use of systemic steroids; Z96.652 Presence of left artificial knee joint; Z87.891 Personal history of nicotine dependence
CPT/HCPCS: 36415; 74177; 80048; 80053; 82274; 82607; 82728; 82746; 83540; 83550; 83690; 85018; 85025; 85045; 85610; 86850; 86900; 86901; 86920; 88305; 99284; J7030; J7040; J7120; P9016; Q9967; A4216; J3490